=== PATIENT | female | born 1995 | race Caucasian/White ===

== ENCOUNTER 2019-07-02 03:56 | Inpatient (IN) ==
[2019-07-02] MEDS ORDERED: Famotidine 20 MG/2 ML VIAL IVP PRN (04:34)
[2019-07-02] MEDS ORDERED: *HR* FentaNYL (PF) 100 MCG/2 ML VIAL IVP PRN (04:34)
[2019-07-02] MEDS ORDERED: Naloxone 0.4 MG/ML INJ IVP PRN (04:34)
[2019-07-02] MEDS ORDERED: Metoclopramide 10 MG/2 ML VIAL IVP PRN (04:34)
[2019-07-02] MEDS ORDERED: Lidocaine 1% 20 ML MDV INFILT PRN (04:34)
[2019-07-02] MEDS ORDERED: miSOPROStoL 25 MCG TABLET PO PRN (04:34)
[2019-07-02] MEDS: Ringers Solution, Lactated 1,000 ML IVC SCH ×3 (05:53→18:04)
[2019-07-02 06:10] LABS: Basophils % 0.5 %; Eosinophils # 0.1 K/mcL (0.0-0.6); Eosinophils % 0.7 %; Hematocrit 39.6 % (35.3-44.9); Hemoglobin 12.9 g/dL (11.5-15.4); Immature Granulocytes % 0.6 % (0-4); Lymphocytes # 2.1 K/mcL (0.6-4.6); Lymphocytes % 23.6 %; Mean Corpuscular HGB Conc 32.6 g/dL (31.6-35.5); Mean Corpuscular Hemoglobin 29.3 pg (28.0-33.3); Mean Platelet Volume 10.7 fL (9.4-12.4); Monocytes # 0.6 K/mcL (0.0-1.3); Monocytes % 6.7 %; Platelet Count 216 K/mcL (140-400); Red Cell Distribution Width 13.2 % (11.5-14.5); Segmented Neutrophils % 67.9 %; White Blood Count 8.8 K/mcL (4.3-11.1)
[2019-07-02 06:17] LABS: Amphetamine Screen,Urine Negative ng/mL (Cutoff=1000); Barbiturate Screen,Urine Negative ng/mL (Cutoff=200); Benzodiazepines Screen,Urine Negative ng/mL (Cutoff=200); Cannabinoid Screen,Urine Negative ng/mL (Cutoff = 50); Cocaine Screen,Urine Negative ng/mL (Cutoff= 300); Opiate Screen,Urine Negative ng/mL (Cutoff=300); Phencyclidine Screen,Urine Negative ng/mL (Cutoff=25)
[2019-07-02] MEDS: Ondansetron 4 MG/2 ML VIAL IVP PRN ×2 (09:48→20:32)
[2019-07-02] MEDS ORDERED: EPHEDrine 50 MG/ML VIAL IVP PRN (10:08)
[2019-07-02] MEDS ORDERED: Bupivacaine-MPF 0.25% 10 ML VIAL EP ONE (10:08)
[2019-07-02] MEDS ORDERED: *HR* FentaNYL (PF) 100 MCG/2 ML VIAL EP ONE (10:08)
[2019-07-02] MEDS ORDERED: Epidural Premix (fent/bupiv) 110 ML EP SCH (10:15)
[2019-07-02] MEDS ORDERED: Bupivacaine-MPF 0.25% 10 ML VIAL ONE (10:22)
[2019-07-02] MEDS ORDERED: *HR* FentaNYL (PF) 100 MCG/2 ML VIAL ONE (10:23)
[2019-07-02] MEDS ORDERED: Oxytocin 20 units/ LR 1000 mL 20 UNIT/1,000 ML BAG IVC SCH (15:45)
[2019-07-02] MEDS ORDERED: Acetaminophen 325 MG TABLET PO ONE (23:00)
[2019-07-03] MEDS ORDERED: Acetaminophen 325 MG TABLET PO PRN (02:13)
[2019-07-03] MEDS ORDERED: Lanolin 7 G OINT...G. TP PRN (02:13)
[2019-07-03] MEDS ORDERED: Oxytocin 20 units/ LR 1000 mL 20 UNIT/1,000 ML BAG IVC ONE (02:13)
[2019-07-03] MEDS ORDERED: Benzocaine/Menthol 56 GM AEROSOL SPRAY TP PRN (02:13)
[2019-07-03] MEDS ORDERED: Ibuprofen 600 MG TABLET PO PRN (02:13)
[2019-07-03 08:10] LABS: Basophils % 0.2 %; Eosinophils % 0.1 %; Hematocrit 36.2 % (35.3-44.9); Hemoglobin 11.7 g/dL (11.5-15.4); Immature Granulocytes % 0.5 % (0-4); Lymphocytes % 8.2 %; Mean Corpuscular HGB Conc 32.3 g/dL (31.6-35.5); Mean Corpuscular Hemoglobin 29.1 pg (28.0-33.3); Mean Platelet Volume 10.5 fL (9.4-12.4); Monocytes # 0.7 K/mcL (0.0-1.3); Monocytes % 6.1 %; Platelet Count 189 K/mcL (140-400); Red Blood Count 4.02 M/mcL (3.82-4.97); Red Cell Distribution Width 13.2 % (11.5-14.5); Segmented Neutrophils % 84.9 %; White Blood Count 11.7 K/mcL (4.3-11.1)
[2019-07-03] MEDS: Prenatal Vit/FA 1 EACH TABLET PO SCH (08:29)
[2019-07-04] MEDS: Oxytocin 20 units/ LR 1000 mL 20 UNIT/1,000 ML BAG IVC SCH (00:12)
[2019-07-04 08:04] VITALS: BP 105/62
[2019-07-04] MEDS: Prenatal Vit/FA 1 EACH TABLET PO SCH (12:09)
== END 2019-07-04 14:16 | disposition home or self-care (01) ==
LOC: 1NENULAB 03:56 → 1NENUOBS 07-03 02:11
PROVIDERS: ADMIT Advanced Practice Midwife; ATTEND Advanced Practice Midwife

== ENCOUNTER 2021-05-30 00:49 | Inpatient (IN) ==
[2021-05-30] MEDS ORDERED: Famotidine 20 MG/2 ML VIAL IVP PRN (01:25)
[2021-05-30] MEDS ORDERED: Metoclopramide 10 MG/2 ML VIAL IVP PRN (01:25)
[2021-05-30] MEDS ORDERED: Ondansetron 4 MG/2 ML VIAL IVP PRN (01:25)
[2021-05-30] MEDS ORDERED: *HR* Nalbuphine 10 MG/ML AMPUL IV PRN (01:25)
[2021-05-30] MEDS ORDERED: Naloxone 0.4 MG/ML INJ IVP PRN (01:25)
[2021-05-30] MEDS ORDERED: Azithromycin 500 MG in 0.9 % Sodium Chloride 250 ML IVPB PRN (01:25)
[2021-05-30] MEDS ORDERED: Ringers Solution, Lactated 1,000 ML IVC SCH (01:30)
[2021-05-30 01:52] LABS: Basophils % 0.3 %; Eosinophils % 0.3 %; Hematocrit 43.3 % (35.3-44.9); Hemoglobin 14.7 g/dL (11.5-15.4); Immature Granulocytes % 0.3 % (0-4); Lymphocytes # 2.4 K/mcL (0.6-4.6); Lymphocytes % 19.9 %; Mean Corpuscular HGB Conc 33.9 g/dL (31.6-35.5); Mean Corpuscular Hemoglobin 30.4 pg (28.0-33.3); Mean Corpuscular Volume 89.5 fL (83.0-100.0); Mean Platelet Volume 11.6 fL (9.4-12.4); Monocytes # 0.5 K/mcL (0.0-1.3); Monocytes % 4.1 %; Neutrophils # 8.9 K/mcL (1.6-8.9); Platelet Count 198 K/mcL (140-400); Red Blood Count 4.84 M/mcL (3.82-4.97); Red Cell Distribution Width 12.8 % (11.5-14.5); Segmented Neutrophils % 75.1 %; White Blood Count 11.9 K/mcL (4.3-11.1)
[2021-05-30 02:01] LABS: Amphetamine Screen,Urine Negative ng/mL (Cutoff=1000); Barbiturate Screen,Urine Negative ng/mL (Cutoff=200); Benzodiazepines Screen,Urine Negative ng/mL (Cutoff=200); Cannabinoid Screen,Urine Negative ng/mL (Cutoff = 50); Cocaine Screen,Urine Negative ng/mL (Cutoff= 300); Opiate Screen,Urine Negative ng/mL (Cutoff=300); Phencyclidine Screen,Urine Negative ng/mL (Cutoff=25)
[2021-05-30] MEDS ORDERED: EPHEDrine 50 MG/ML VIAL IVP PRN (02:14)
[2021-05-30] MEDS ORDERED: Epidural Premix (fent/bupiv) 110 ML EP SCH (02:15)
[2021-05-30 02:29] LABS: Influenza A PCR Negative (Negative); Influenza B PCR Negative (Negative); Resp. Syncytial Virus PCR Negative (Negative)
[2021-05-30 02:30] LABS: SARS-CoV-2 by PCR (In House) Negative (Negative)
[2021-05-30] MEDS ORDERED: Oxytocin 20 units/ LR 1000 mL 20 UNIT/1,000 ML BAG IVC ONE (02:43)
[2021-05-30] MEDS ORDERED: Lanolin 7 G OINT...G. TP PRN (04:16)
[2021-05-30] MEDS ORDERED: Oxytocin 20 units/ LR 1000 mL 20 UNIT/1,000 ML BAG IVC SCH (04:16)
[2021-05-30] MEDS ORDERED: Benzocaine/Menthol 56 GM AEROSOL SPRAY TP PRN (04:16)
[2021-05-30] MEDS ORDERED: Ondansetron ODT 4 MG TAB.RAPDIS SL PRN (04:16)
[2021-05-30] MEDS: Acetaminophen 325 MG TABLET PO SCH ×2 (05:30→21:20)
[2021-05-30] MEDS: Ibuprofen 600 MG TABLET PO SCH ×2 (08:09→21:20)
[2021-05-30] MEDS: Prenatal Vit/FA 1 EACH TABLET PO SCH (08:09)
[2021-05-31 07:33] VITALS: BP 106/63; PULSE 86; TEMP 98; O2SAT 98
[2021-05-31] MEDS: Ibuprofen 600 MG TABLET PO SCH (07:54)
[2021-05-31] MEDS: Acetaminophen 325 MG TABLET PO SCH (07:55)
[2021-05-31] MEDS: Prenatal Vit/FA 1 EACH TABLET PO SCH (07:55)
== END 2021-05-31 13:17 | disposition home or self-care (01) | DRG 807 ==
LOC: 1NENULAB → OBSVTOIN 00:49 → 1NENUOBS 05:07
PROVIDERS: ADMIT Advanced Practice Midwife; ATTEND Advanced Practice Midwife